=== PATIENT | female | born 1985 | race Caucasian/White ===

== ENCOUNTER 2020-08-24 10:55 | Outpatient (REF) | payer OTHER, SELFPAY ==
[2020-08-29 19:21] LABS: HPV mRNA E6/E7 rflx Not Detected (Not Detected)
== END 2020-08-24 10:56 | disposition home or self-care (01) ==
LOC: HO.LAB 10:55
PROVIDERS: Visit Provider Advanced Practice Midwife
DX: Z01.419 Encounter for gynecological examination (general) (routine) without abnormal findings (principal); N63.21 Unspecified lump in the left breast, upper outer quadrant
CPT/HCPCS: 87624; 87625; 88142

== ENCOUNTER 2020-09-19 13:28 | Outpatient (REF) | payer OTHER, SELFPAY ==
--- NOTE | 2020-09-19 | US_ITS ---
EXAMINATION: US DIAGNOSTIC ULTRASOUND BREAST, BILATERAL CLINICAL INFORMATION: Bilateral breast densities. COMPARISON: 09/19/2020 TECHNIQUE: Ultrasound of the breast is performed with real-time simms scale imaging and color Doppler. FINDINGS: Targeted left breast ultrasound demonstrates at the 1 o'clock position, 3 cm from the nipple, a bilobed cyst with smooth and increased through-sound transmission without any increased sound shadowing. The lesion is wider than it is tall without internal vascularity. No suspicious solid mass or shadowing lesion is appreciated. Targeted right breast ultrasound demonstrated at the 1:30 position, approximately 6 cm from the nipple, an elongated anechoic lesion measuring approximately 5 x 2 x 4 mm lesion which is wider than it is tall with some increased through-sound transmission and no distal sound shadowing. No internal vascularity is present. Recommend obtaining outside studies for comparison and addendum will be made once study can be compared. Results are discussed with the patient at time of visit. US/US breast LT limited IMPRESSION: 1. Palpable abnormality of the left breast corresponds to a cyst. 2. Circumscribed density about the medial aspect of the right breast appears to correspond to a cyst. ASSESSMENT: BI-RADS 0: Incomplete -need comparison with previous studies. RECOMMENDATION: Comparison to previous study for comparison of right breast finding.
--- NOTE | 2020-09-19 | US_ITS ---
EXAMINATION: US DIAGNOSTIC BREAST, BILATERAL CLINICAL INFORMATION: Bilateral breast densities. COMPARISON: Mammogram of same day. Outside studies from not available at this time.. TECHNIQUE: Ultrasound of the breast is performed with real-time simms scale imaging and color Doppler. FINDINGS: Targeted left breast ultrasound demonstrates at the 1 o'clock position, 3 cm from the nipple, a bilobed cyst with smooth and increased through-sound transmission without any increased sound shadowing. The lesion is wider than it is tall without internal vascularity. No suspicious solid mass or shadowing lesion is appreciated. Targeted right breast ultrasound demonstrated at the 1:30 position, approximately 6 cm from the nipple, an elongated anechoic lesion measuring approximately 5 x 2 x 4 mm lesion which is wider than it is tall with some increased through-sound transmission and no distal sound shadowing. No internal vascularity is present. Recommend obtaining outside studies for comparison and addendum will be made once study can be compared. Results are discussed with the patient at time of visit. US/US breast RT limited IMPRESSION: 1. Palpable abnormality of the left breast corresponds to a cyst. 2. Circumscribed density about the medial aspect of the right breast appears to correspond to a cyst. ASSESSMENT: BI-RADS 0: Incomplete -need comparison with previous studies. RECOMMENDATION: Comparison to previous study for comparison of right breast finding.
--- NOTE | 2020-09-19 13:33 | MM_ITS ---
EXAMINATION: MM DIAGNOSTIC DIGITAL BREAST TOMOSYNTHESIS, BILATERAL CLINICAL INFORMATION: Left breast lump, upper outer aspect. The lifetime risk of breast cancer based on the Tyrer-Cuzick Model is 9.8%. COMPARISON: Mammography: None at this time. Outside studies at [facility]. TECHNIQUE: Digital breast tomosynthesis is performed in both the craniocaudal and mediolateral oblique views along with computer-aided detection (CAD). Synthesized 2D images are generated from the tomosynthesis. Additional right breast exaggerated craniocaudal view as well as spot compression views of the right breast in craniocaudal and mediolateral oblique projections. FINDINGS: The breasts are heterogeneously dense, which may obscure small masses (ACR BI-RADS breast composition Category c). Within the upper outer aspect of the left breast corresponding to palpable abnormality approximately 3 cm from the nipple, a 1.4 cm circumscribed lesion is seen. Within the right breast medially there is an 8 x 4 mm circumscribed density. No suspicious grouping of microcalcifications identified. Targeted left breast ultrasound demonstrates at the 1 o'clock position, 3 cm from the nipple, a bilobed cyst with smooth and increased through-sound transmission without any increased sound shadowing. The lesion is wider than it is tall without internal vascularity. No suspicious solid mass or shadowing lesion is appreciated. Targeted right breast ultrasound demonstrated at the 1:30 position, approximately 6 cm from the nipple, an elongated anechoic lesion measuring approximately 5 x 2 x 4 mm lesion which is wider than it is tall with some increased through-sound transmission and no distal sound shadowing. No internal vascularity is present. Recommend obtaining outside studies for comparison and addendum at that point will be made once study can be compared. Results are discussed with the patient at time of visit. MM/MM tomosynthesis diagnostic BI IMPRESSION: 1. Palpable abnormality of the left breast corresponds to a cyst. 2. Circumscribed density about the medial aspect of the right breast appears to correspond to a cyst. ASSESSMENT: BI-RADS 0: Incomplete -need comparison with previous studies. RECOMMENDATION: Comparison with previous study for comparison of right breast finding.
== END 2020-09-19 13:29 | disposition home or self-care (01) ==
LOC: HO.MAMMO 13:28
PROVIDERS: PCP Nurse Practitioner Family; Visit Provider Advanced Practice Midwife
DX: N63.21 Unspecified lump in the left breast, upper outer quadrant (principal)
CPT/HCPCS: 76642; 77062; 77066

== ENCOUNTER 2020-10-03 10:00 | Outpatient (REF) | payer OTHER, SELFPAY ==
[2020-10-03 10:39] LABS: COVID-19 Test Negative (Negative)
== END 2020-10-03 10:01 | disposition home or self-care (01) ==
LOC: HO.EMPCOV 10:00
PROVIDERS: Visit Provider Internal Medicine
DX: Z20.828 Contact with and (suspected) exposure to other viral communicable diseases (principal)
CPT/HCPCS: 87635; C9803

== ENCOUNTER → 2020-10-16 10:40 | Outpatient (BNVA) | payer OTHER, SELFPAY | PROVIDERS: PCP Internal Medicine; Visit Provider Advanced Practice Midwife | DX: Z76.89 Persons encountering health services in other specified circumstances (principal) ==

== ENCOUNTER 2021-02-13 07:51 | Outpatient (REF) | payer OTHER, SELFPAY ==
--- NOTE | ~2021-02-13 | XR_ITS ---
EXAMINATION: X-RAY BILATERAL KNEES X-RAY RIGHT KNEE X-RAY LEFT KNEE CLINICAL INFORMATION: Knee pain COMPARISON: None TECHNIQUE: Bilateral knees one view. Right knee 2 views. Left knee 2 views. FINDINGS: Right knee: Normal alignment. Joint spaces are maintained. No fracture or dislocation. No effusion. Left knee: Normal alignment. Joint spaces are maintained. No fracture or dislocation. No effusion. XR/XR knee RT 2V IMPRESSION: No acute osseous abnormality.
--- NOTE | ~2021-02-13 | XR_ITS ---
EXAMINATION: X-RAY BILATERAL KNEES X-RAY RIGHT KNEE X-RAY LEFT KNEE CLINICAL INFORMATION: Knee pain COMPARISON: None TECHNIQUE: Bilateral knees one view. Right knee 2 views. Left knee 2 views. FINDINGS: Right knee: Normal alignment. Joint spaces are maintained. No fracture or dislocation. No effusion. Left knee: Normal alignment. Joint spaces are maintained. No fracture or dislocation. No effusion. XR/XR knee standing BI IMPRESSION: No acute osseous abnormality.
--- NOTE | ~2021-02-13 | XR_ITS ---
EXAMINATION: X-RAY BILATERAL KNEES X-RAY RIGHT KNEE X-RAY LEFT KNEE CLINICAL INFORMATION: Knee pain COMPARISON: None TECHNIQUE: Bilateral knees one view. Right knee 2 views. Left knee 2 views. FINDINGS: Right knee: Normal alignment. Joint spaces are maintained. No fracture or dislocation. No effusion. Left knee: Normal alignment. Joint spaces are maintained. No fracture or dislocation. No effusion. XR/XR knee LT 2V IMPRESSION: No acute osseous abnormality.
== END 2021-02-13 07:52 | disposition home or self-care (01) ==
LOC: HO.HOSX 07:51
PROVIDERS: Visit Provider Orthopaedic Surgery
DX: M22.2X1 Patellofemoral disorders, right knee (principal); M22.2X2 Patellofemoral disorders, left knee; M70.61 Trochanteric bursitis, right hip; M70.62 Trochanteric bursitis, left hip
CPT/HCPCS: 73560; 73565

== ENCOUNTER 2021-03-23 12:36 | Outpatient (REF) | payer OTHER, SELFPAY ==
--- NOTE | ~2021-03-23 | US_ITS ---
EXAMINATION: US DIAGNOSTIC ULTRASOUND BREAST, RIGHT CLINICAL INFORMATION: Right breast complex cyst follow-up. COMPARISON: September 19, 2020. TECHNIQUE: Ultrasound of the breast is performed with real-time simms scale imaging and color Doppler. FINDINGS: There is again noted to be a stable minimally complex cyst about the 1 to 2:00 position 6 cm from the nipple measuring 4 x 2 mm in size. There is no solid mass, architectural abnormality, duct ectasia, or edema in the soft tissue planes. Results are discussed with the patient at time of visit. US/US breast RT limited IMPRESSION: Stable minimally complex cyst right breast. ASSESSMENT: BI-RADS 2: Benign RECOMMENDATION: Routine annual mammography screening, due in 6 months. This patient's information was entered into a reminder system with a target due date for their next mammogram.
--- NOTE | ~2021-03-23 | MM_ITS ---
EXAMINATION: MM DIAGNOSTIC DIGITAL BREAST TOMOSYNTHESIS, RIGHT CLINICAL INFORMATION: Lump upper outer quadrant The lifetime risk of breast cancer based on the Tyrer-Cuzick Model is 9.8%. COMPARISON: Mammography: September 19, 2020 TECHNIQUE: Digital breast tomosynthesis is performed in both the craniocaudal and mediolateral oblique views along with computer-aided detection (CAD). Synthesized 2D images are generated from the tomosynthesis. FINDINGS: The breasts are heterogeneously dense, which may obscure small masses (ACR BI-RADS breast composition Category c). There are no new significant masses, abnormal calcifications, or other abnormalities. Stable circumscribed density about the superior medial aspect of the right breast again seen. Results are provided to the patient at time of visit by the technologist. MM/MM tomosynthesis diagnostic RT IMPRESSION: There are no significant changes from prior study. ASSESSMENT: BI-RADS 2: Benign RECOMMENDATION: Routine annual mammography screening, due in 6 months. This patient's information was entered into a reminder system with a target due date for their next mammogram.
== END 2021-03-23 12:37 | disposition home or self-care (01) ==
LOC: HO.MAMMO 12:36
PROVIDERS: Visit Provider Advanced Practice Midwife
DX: N60.01 Solitary cyst of right breast (principal)
CPT/HCPCS: 76642; 77061; 77065

== ENCOUNTER 2021-03-28 11:17 | Outpatient (REF) | payer OTHER, SELFPAY | END 2021-03-28 11:18 | disposition home or self-care (01) | LOC: HO.LAB 11:17 | PROVIDERS: PCP Internal Medicine; Visit Provider Advanced Practice Midwife | DX: Z71.2 Person consulting for explanation of examination or test findings (principal); N63.21 Unspecified lump in the left breast, upper outer quadrant; N39.0 Urinary tract infection, site not specified; R31.9 Hematuria, unspecified | CPT/HCPCS: 87086; 87088; 87186 ==

== ENCOUNTER 2021-04-02 09:00 | Outpatient (RCR) | payer OTHER, SELFPAY ==
--- NOTE | 2021-02-27 09:33 | MHC.PT.EP ---
[facility] [place] Office [place] Office [place] [facility] [address] Garth Sandoval [address] [phone] F: [phone] F: [phone] F: [phone] F: [phone] Physical Therapy Plan of Care Date of Evaluation: Date of Surgery: Diagnosis: bilateral patellofemoral disorder Assessment: The patient arrived reporting bilateral knee pain. She has normal ROM and normal strength in her knees. However, she has poor squat mechanics, increased ankle instability, poor mobility in her lumbar spine, tightness in her hamstrings bilaterally, and sacral torsion noted in her pelvis. She will benefit from education on proper squat/lifting mechanics, sitting posture for work, footwear for prolonged standing/'walking. She also reports a significant pelvic floor weakness history which suggests possible prolapse. She would benefit from a full and separate pelvic floor assessment to address her bowel and bladder symptoms. She is an excellent candidate for skilled PT. Frequency and Duration: The patient will be seen 2x/week x 3 weeks. Short Term Goals: Pt to be able to know the proper footwear to avoid stress to her knees. Pt to demonstrate initial instructions on improving bending and squatting and avoiding medial collapse during steps/stairs. Record Label Internship Goals: 1. Pt to be able to demonstrate proper squatting and bending mechanics to decrease stress to knees. 2. Pt to have good mobility in her pelvis and sacrum to decrease lower back pain/coccyx pain. Treatment Plan: Modalities to reduce pain, spasms and effusion. Manual therapy to restore motion and function. Therapeutic exercise to improve strength and flexibility. Neuromuscular re-education for posture and balance. Therapeutic activities to return to functional activities of daily living. Electronically signed by: Brandy Bernstein PT DPT Please sign and return to therapist. Thank you for your referral.
== END 2021-04-07 08:00 | disposition home or self-care (01) ==
LOC: HO.PT 09:00
PROVIDERS: Visit Provider Orthopaedic Surgery
DX: M22.2X1 Patellofemoral disorders, right knee (principal); M22.2X2 Patellofemoral disorders, left knee; M70.61 Trochanteric bursitis, right hip
CPT/HCPCS: 97110; 97112; 97140; 97162; 97530

== ENCOUNTER 2021-04-11 13:41 | Outpatient (REF) | payer OTHER, SELFPAY ==
[2021-04-11 14:17] LABS: MANUAL DIFF FLAG NO
[2021-04-11 14:19] LABS: Basophils Percent Auto 0.5 % (0-2); Eosinophils Absolute Auto 0.3 X10*3/uL (0.0-0.4); Eosinophils Percent Auto 4.1 % (0-4); Hematocrit 39.7 % (37-47); Hemoglobin 13.2 g/dl (12.0-16.0); Imm Gran Abs Auto 0.01 X10*3/uL (0.00-0.03); Imm Gran Pct Auto 0.2 % (0.0-0.4); Lymphocytes Absolute Auto 1.9 X10*3/uL (1.2-4.9); Lymphocytes Percent Auto 30.1 % (20-40); Mean Corpuscular HGB Conc 33.2 g/dl (31.0-35.0); Mean Corpuscular Hemoglobin 29.9 pg (27.0-33.0); Mean Corpuscular Volume 89.8 fL (80-98); Mean Platelet Volume 10.3 fL (9.4-12.3); Monocytes Absolute Auto 0.5 X10*3/uL (0.1-1.2); Monocytes Percent Auto 8.4 % (2-11); Neutrophils Absolute Auto 3.6 X10*3/uL (2.0-8.3); Neutrophils Percent Auto 56.7 % (45-73); Platelet Count 232 X10*3/uL (160-400); Red Blood Count 4.42 X10*6/uL (4.20-5.50); Red Cell Distribution Width 13.2 % (11.0-16.0); White Blood Count 6.3 X10*3/uL (4.8-10.8)
[2021-04-11 15:03] LABS: Glucose Urine UA NEG (NEG); Leukocyte Esterase Urine 2+ (NEG); Nitrite Urine NEG (NEG); UACC Culture Trigger YES; Urine Blood 2+ (NEG); Urine Ketones NEG (NEG); Urine Protein TRACE MG/DL (NEG-TRACE)
[2021-04-11 15:06] LABS: Appearance Urine CLOUDY; Color Urine YELLOW
[2021-04-11 15:15] LABS: Bacteria Urine 1+ /LPF; Squamous Epithelial Cell Urine 1+ /LPF
== END 2021-04-11 13:42 | disposition home or self-care (01) ==
LOC: HO.LAB 13:41
PROVIDERS: PCP Internal Medicine; Visit Provider Internal Medicine
DX: R30.0 Dysuria (principal); D50.9 Iron deficiency anemia, unspecified
CPT/HCPCS: 36415; 81001; 81003; 85025; 87086; 87088; 87186

== ENCOUNTER → 2021-06-19 08:53 | Outpatient (BNVA) | payer SELFPAY | PROVIDERS: PCP Internal Medicine | DX: Z20.822 Contact with and (suspected) exposure to COVID-19 (principal) | CPT/HCPCS: 36415; 87635 ==

== ENCOUNTER → 2022-01-16 14:04 | Outpatient (BNVA) | payer BC, SELFPAY | PROVIDERS: PCP Internal Medicine; Visit Provider Advanced Practice Midwife | DX: Z13.89 Encounter for screening for other disorder (principal) ==

== ENCOUNTER 2022-09-10 09:47 | Outpatient (REF) | payer BC, SELFPAY ==
[2022-09-10 11:31] LABS: MANUAL DIFF FLAG NO
[2022-09-10 11:55] LABS: Basophils Percent Auto 0.5 % (0-2); Eosinophils Absolute Auto 0.3 X10*3/uL (0.0-0.4); Eosinophils Percent Auto 5.2 % (0-4); Imm Gran Abs Auto 0.01 X10*3/uL (0.00-0.03); Imm Gran Pct Auto 0.2 % (0.0-0.4); Lymphocytes Absolute Auto 1.7 X10*3/uL (1.2-4.9); Lymphocytes Percent Auto 30.6 % (20-40); Mean Corpuscular HGB Conc 33.3 g/dl (31.0-35.0); Mean Corpuscular Hemoglobin 30.4 pg (27.0-33.0); Mean Corpuscular Volume 91.1 fL (80.0-98.0); Mean Platelet Volume 10.7 fL (9.4-12.3); Monocytes Absolute Auto 0.5 X10*3/uL (0.1-1.2); Monocytes Percent Auto 8.2 % (2-11); Neutrophils Absolute Auto 3.1 x10*3/uL (2.0-8.3); Neutrophils Percent Auto 55.3 % (45-73); Platelet Count 243 X10*3/uL (160-400); Red Blood Count 4.61 X10*6/uL (4.20-5.50); Red Cell Distribution Width 12.2 % (11.0-16.0); White Blood Count 5.6 X10*3/uL (4.8-10.8)
[2022-09-10 12:37] LABS: Alanine Aminotransferase 11 U/L (0-31); Albumin Level 4.7 g/dL (3.5-5.0); Alkaline Phosphatase 42 U/L (39-117); Anion Gap 13 (12-20); Aspartate Amino Transferase 16 U/L (5-31); Bilirubin Total 2.3 mg/dL (0.0-1.0); Blood Urea Nitrogen 14 mg/dL (9-16); Calcium 9.5 mg/dL (8.4-10.2); Carbon Dioxide 26 mmol/L (22-29); Chloride 105 mmol/L (96-108); Cholesterol 182 mg/dL; Estimated Glomerular Filt Rate > 60; Glucose Fasting 97 mg/dL (60-99); HDL Cholesterol 60 mg/dL; Iron 150 mcg/dL (30-160); LDL Cholesterol Calculated 112 mg/dl; Percent Iron Saturation 39 % (15-50); Potassium 4.6 mmol/L (3.3-5.1); Sodium 139 mmol/L (135-145); Total Iron Binding Capacity 381 mcg/dL (228-428); Total Protein 7.3 g/dL (6.5-8.0); Triglycerides 54 mg/dL; Unsaturated Iron Binding 231 ug/dL
== END 2022-09-10 09:48 | disposition home or self-care (01) ==
LOC: HO.HMGCLDS 09:47
PROVIDERS: PCP Internal Medicine; Visit Provider Internal Medicine
DX: Z00.00 Encounter for general adult medical examination without abnormal findings (principal); D64.9 Anemia, unspecified
CPT/HCPCS: 36415; 80053; 80061; 83540; 85025

== ENCOUNTER → 2023-03-12 11:11 | Outpatient (BNVA) | payer OTHER, SELFPAY | PROVIDERS: PCP Internal Medicine; Visit Provider Advanced Practice Midwife ==

== ENCOUNTER 2023-03-27 09:01 | Outpatient (REF) | payer OTHER, SELFPAY ==
--- NOTE | ~2023-03-27 | MM_ITS ---
EXAMINATION: MM DIAGNOSTIC DIGITAL BREAST TOMOSYNTHESIS, BILATERAL US DIAGNOSTIC ULTRASOUND BREAST, RIGHT CLINICAL INFORMATION: 37-year-old with recent pain 12:00 right breast for around one month. Prior history fibrocystic changes. No known family history breast cancer. TC score 9%. COMPARISON: Mammography: 03/23/2021, 09/19/2020 (diagnostic, baseline), bilateral breast ultrasound 09/19/2020, right ultrasound 03/23/2021. TECHNIQUE: Digital breast tomosynthesis is performed in both the craniocaudal and mediolateral oblique views along with computer-aided detection (CAD). Synthesized 2D images are generated from the tomosynthesis. Ultrasound right breast is targeted to the 10:00 through 2:00 position using grayscale imaging and color Doppler without and with harmonics. FINDINGS: The breasts are heterogeneously dense, which may obscure small masses (ACR BI-RADS breast composition Category c). There is fibrocystic parenchymal pattern with dominant smooth nodularity in area of clinical symptoms mid 12:00 right breast, approximately 1.6 cm in diameter. Prior dominant cyst periareolar left breast is decreased. There is no architectural abnormality. No abnormal calcifications. The axilla and skin contours are unremarkable. There is no skin thickening or coarsening of the Ron's ligaments. Ultrasound right breast demonstrates scattered benign simple cysts, the largest corresponds to the area of clinical concern mid upper left breast measuring 1.8 x 0.6 cm and showing increased through-transmission of sound and no associated color flow. The next 2 largest cysts in the interrogated area measure 0.8 cm and 0.6 cm, respectively. There is no solid mass or architectural abnormality. No skin thickening or edema tracking in soft tissue planes. Results are discussed with the patient at time of visit. MM/MM tomosynthesis diagnostic BI IMPRESSION: -Fibrocystic changes, dominant cyst at site of palpable concern measuring 1.8 cm. -No mammographic or ultrasound evidence of malignancy. ASSESSMENT: BI-RADS 2: Benign RECOMMENDATION: 1. Patient's mastodynia may be managed based on the clinical impression. 2. Otherwise, routine annual screening mammography, beginning age 40, or earlier as clinical risk factors warrant. This patient's information was entered into a reminder system with a target due date for their next mammogram.
== END 2023-03-27 09:02 | disposition home or self-care (01) ==
LOC: HO.MAMMO 09:01
PROVIDERS: PCP Internal Medicine; Visit Provider Advanced Practice Midwife
DX: N64.4 Mastodynia (principal)
CPT/HCPCS: 76642; 77062; 77066

== ENCOUNTER 2024-03-18 11:15 | Outpatient (AMB) | payer OTHER, SELFPAY ==
[2024-03-18 11:21] VITALS: BP 100/56; BMI 22.1
--- NOTE | 2024-03-18 11:21 | A.OFFVIS_ITS ---
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 Doing well with no concerns. She tries to eat healthy and stays active. No regular menses with Mirena IUD inserted 04/2020. Currently is sexually active. She denies vaginal itching and irritation. STI screening offered; she declines. Denies family history of colon cancer. Family history of breast and ovarian cancer. Last pap smear 2019, negative. [facility] Medical History Breast pain, right Allergic rhinitis Physical exam Hip pain Patellofemoral syndrome Coccyalgia Microcytic anemia Hx of migraine headaches Surgical History Hx of section Family History Father HLD (hyperlipidemia) Asthma Mother Muscular dystrophy Maternal Grandmother Ovarian cancer Colon cancer Maternal Grandfather Muscular dystrophy Social History Housing: House Alcohol intake: current Alcohol intake frequency: a few times a month Alcohol type: hard liquor Patient Tobacco Use Status: Never used Tobacco e-Cigarette/Vaping Use: Never Used Second Hand Smoke Exposure: No service: No Current occupational status: employed 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 Current occupational exposures/hazards: No Sexual orientation: Straight/Heterosexual Gender identity: Female Female Reproductive History Menstrual Age of Menarche: 11 control method: progestin IUCD (Mirena ) Total pregnancies: 2 Full term: 2 Number of Living Children: 2 Date of last pap smear: 08/25/20 (negative) Review of Systems Const All systems reviewed & are unremarkable except as noted in HPI and below Reports as per HPI Eyes Reports no additional complaints ENT Reports no additional complaints Card Reports no additional complaints Resp Reports no additional complaints GI Reports as per HPI and Reports no additional complaints Reports as per HPI Musc Reports no additional complaints Skin/Breast Reports as per HPI Neuro Reports no additional complaints Psych Reports no additional complaints Endo Reports no additional complaints Geremias/Lymph Reports no additional complaints Aller/Immun Reports no additional complaints Physical Exam Vital Signs: Last Vital Signs BP 100/56 L 03/18/24 11:21 BMI result Body Mass Index 22.1 Const General: cooperative, healthy appearing, no acute distress, well developed and alert Orientation/consciousness: patient oriented x3 HEENT Head: Yes normal to inspection Eyes General: appearance normal, both eyes and all related structures Neck Neck: Yes normal visual inspection Thyroid: Thyroid normal Chest Chest palpation & inspection: normal inspection of the chest and other (no puckering, dimpling, peau de orange, retraction, discharge, masses) Breast/axilla inspection: normal inspection of the breasts Breast/axilla palpation: normal palpation of the breasts Resp Effort & Inspection: normal respiratory effort GI Inspection: Yes normal to inspection Palpation (GI): Soft to palpation Rectal Exam - Female: deferred General: Yes bladder normal to palpation External Female Exam: normal external appearance and normal appearance of the urethra Speculum Exam - Vagina: normal appearance of the vagina, normal palpation and normal vaginal discharge Speculum Exam - Cervix: normal appearance of the cervix, normal palpation and Other cervical findings present (IUD string short at cervical os) Bimanual exam- vagina & uterus: normal bimanual exam, normal palpation, uterine size normal, bladder normal to palpation, normal palpation and non-tender Bimanual Exam- Adnexa, other: no masses Skin General skin exam: no rashes or lesions noted Rashes: no rashes Neuro General: patient oriented x3 Cognition (Neuro): normal cognition Extrem General: Yes normal to inspection Psych Attitude: cooperative Thought process: Normal thought process present Assessment & Plan Assessment & Plan (1) Well woman exam with routine gynecological exam: Code(s): Z01.419 - Encounter for gynecological examination (general) (routine) without abnormal findings Category: Medical Plan Discussed: Current recommendations for pap smears per ASCCP guidelines. Breast awareness and periodic breast exams. Maintain a healthy lifestyle including a well balanced diet and routine exercise. Patient verbalizes understanding and agrees to the plan of care. She was given opportunity to ask questions and all questions were answered to the best of my ability. RTO in one year for annual physician gynecologist examination. This note is constructed using voice recognition software. While every effort has been made to ensure accuracy, industrial technologist errors may have been included. Coding Level of Care Code Est Pt Prev Care 18-39y(99499) Diagnoses Well woman exam with routine gynecological exam Z01.419
== END 2024-03-18 12:07 | disposition home or self-care (01) ==
PROVIDERS: Visit Provider Advanced Practice Midwife
DX: Z01.419 Encounter for gynecological examination (general) (routine) without abnormal findings (principal)
CPT/HCPCS: 99395

== ENCOUNTER → 2024-03-18 11:15 | Outpatient (BNVA) | payer OTHER, SELFPAY | PROVIDERS: Visit Provider Advanced Practice Midwife | DX: Z01.419 Encounter for gynecological examination (general) (routine) without abnormal findings (principal) | CPT/HCPCS: 99395 ==

== ENCOUNTER 2025-03-22 11:26 | Outpatient (REF) | payer OTHER, SELFPAY ==
[2025-03-22 17:47] LABS: CT PCR NOT DETECTED (Not Detect.); NG PCR NOT DETECTED (Not Detect.)
[2025-03-28 12:01] LABS: HPV Genotype 16 Negative (Negative); HPV Genotype 18 Negative (Negative); HPV High Risk Negative (Negative)
== END 2025-03-22 11:27 | disposition home or self-care (01) ==
LOC: HO.LNP 11:26
PROVIDERS: PCP Internal Medicine; Visit Provider Advanced Practice Midwife
DX: Z01.419 Encounter for gynecological examination (general) (routine) without abnormal findings (principal)
CPT/HCPCS: 87491; 87591; 87626; 88175; 99395; 99459

== ENCOUNTER 2025-03-22 11:26 | Outpatient (AMB) | payer OTHER, SELFPAY ==
--- NOTE | 2025-03-22 11:30 | MHC.OFFVIS ---
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 Regular monthly menses, light brown. Uses Mirena, for cycle control, uncertain 2019. Currently is sexually active. She denies vaginal itching or irritation. She tries to eat healthy and stays active with exercise. Denies family history of colon and ovarian cancer. Last pap smear 2019, negative. [facility] Medical History (Updated 03/22/25 @ 13:15 by Chioma Larose CNM) Well woman exam with routine gynecological exam History of use of contraceptive intrauterine device (IUD) Allergic rhinitis Physical exam Hip pain Patellofemoral syndrome Coccyalgia Microcytic anemia Hx of migraine headaches Surgical History Hx of section Family History Father HLD (hyperlipidemia) Asthma Mother Muscular dystrophy Maternal Grandmother Ovarian cancer Colon cancer Maternal Grandfather Muscular dystrophy Social History Housing: House Alcohol intake: current Alcohol intake frequency: a few times a month Alcohol type: hard liquor Patient Tobacco Use Status: Never used Tobacco e-Cigarette/Vaping Use: Never Used Second Hand Smoke Exposure: No service: No Current occupational status: employed 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 Current occupational exposures/hazards: No Sexual orientation: Straight/Heterosexual Gender identity: Female Female Reproductive History Menstrual Age of Menarche: 11 Date of last menstrual period: 03/14/25 control method: progestin IUCD (Mirena ) Total pregnancies: 2 Full term: 2 Number of Living Children: 2 Date of last pap smear: 08/24/20 (negative pap smear, negative hpv ) Date of Mammogram: 03/27/23 (bi rad 2) Review of Systems Const All systems reviewed & are unremarkable except as noted in HPI and below Reports as per HPI Eyes Reports no additional complaints ENT Reports no additional complaints Card Reports no additional complaints Resp Reports no additional complaints GI Reports as per HPI and Reports no additional complaints Reports as per HPI Musc Reports no additional complaints Skin/Breast Reports as per HPI Neuro Reports no additional complaints Psych Reports no additional complaints Endo Reports no additional complaints Geremias/Lymph Reports no additional complaints Aller/Immun Reports no additional complaints Physical Exam Vital Signs: BMI result Body Mass Index 23.3 Const General: cooperative, healthy appearing, no acute distress, well developed and alert Orientation/consciousness: patient oriented x3 HEENT Head: Yes normal to inspection Eyes General: appearance normal, both eyes and all related structures Neck Neck: Yes normal visual inspection Thyroid: Thyroid normal Chest Chest palpation & inspection: normal inspection of the chest and other (no puckering, dimpling, peau de orange, retraction, discharge, masses) Breast/axilla inspection: normal inspection of the breasts Breast/axilla palpation: normal palpation of the breasts Resp Effort & Inspection: normal respiratory effort GI Inspection: Yes normal to inspection Palpation (GI): Soft to palpation Rectal Exam - Female: deferred General: Yes bladder normal to palpation External Female Exam: normal external appearance and normal appearance of the urethra Speculum Exam - Vagina: normal appearance of the vagina, normal palpation and normal vaginal discharge Speculum Exam - Cervix: normal palpation and Other cervical findings present (Strings at the os) Bimanual exam- vagina & uterus: normal bimanual exam, normal palpation, uterine size normal, bladder normal to palpation, normal palpation and non-tender Bimanual Exam- Adnexa, other: no masses Skin General skin exam: no rashes or lesions noted Rashes: no rashes Neuro General: patient oriented x3 Cognition (Neuro): normal cognition Extrem General: Yes normal to inspection Psych Attitude: cooperative Thought process: Normal thought process present Assessment & Plan Assessment & Plan (1) Well woman exam with routine gynecological exam: Code(s): Z01.419 - Encounter for gynecological examination (general) (routine) without abnormal findings Category: Medical Plan Discussed: Current recommendations for pap smears per ASCCP guidelines. Breast awareness and periodic breast exams. Mammogram after age [address] Maintain a healthy lifestyle including a well balanced diet and routine exercise. Schedule Mirena exchange. GC chlamydia completed today. Patient verbalizes understanding and agrees to the plan of care. She was given opportunity to ask questions and all questions were answered to the best of my ability. RTO in one year for annual sales representative leather goods examination. This note is constructed using voice recognition software. While every effort has been made to ensure accuracy, swimming pool salesperson errors may have been included. Orders: Orders MM tomosynthesis screening BI 06/27/25 Z12.31 - Encounter for screening mammogram for malignant neoplasm of breast Coding Level of Care Code Est Pt Prev Care 18-39y(79184) Diagnoses Well woman exam with routine gynecological exam Z01.419
[2025-03-22 11:35] VITALS: BMI 23.3
== END 2025-03-22 12:08 | disposition home or self-care (01) ==
LOC: HO.HWS 11:26
PROVIDERS: PCP Internal Medicine; Visit Provider Advanced Practice Midwife
DX: Z01.419 Encounter for gynecological examination (general) (routine) without abnormal findings (principal)
CPT/HCPCS: 99395; 99459

== ENCOUNTER 2025-04-12 14:40 | Outpatient (AMB) | payer OTHER, SELFPAY ==
--- NOTE | 2025-04-12 14:46 | MHC.OFFVIS ---
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 History of AUB. [facility] Medical History (Updated 04/12/25 @ 15:18 by Chioma Larose CNM) IUD (intrauterine device) in place Well woman exam with routine gynecological exam Allergic rhinitis Physical exam Hip pain Patellofemoral syndrome Coccyalgia Microcytic anemia Hx of migraine headaches Surgical History Hx of section Family History Father HLD (hyperlipidemia) Asthma Mother Muscular dystrophy Maternal Grandmother Ovarian cancer Colon cancer Maternal Grandfather Muscular dystrophy Social History Housing: House Alcohol intake: current Alcohol intake frequency: a few times a month Alcohol type: hard liquor Patient Tobacco Use Status: Never used Tobacco e-Cigarette/Vaping Use: Never Used Second Hand Smoke Exposure: No service: No Current occupational status: employed 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 Current occupational exposures/hazards: No Sexual orientation: Straight/Heterosexual Gender identity: Female Female Reproductive History Menstrual Age of Menarche: 11 Date of last menstrual period: 04/09/25 Review of Systems Const All systems reviewed & are unremarkable except as noted in HPI and below Physical Exam Vital Signs: Last Vital Signs BP 110/74 04/12/25 14:47 BMI result Body Mass Index 23.2 Const General: cooperative, healthy appearing and no acute distress Orientation/consciousness: patient oriented x3 GI Inspection: Yes normal to inspection Palpation (GI): Soft to palpation and Other GI palpation findings present (Nontender) Rectal Exam - Female: visual inspection normal General: Yes bladder normal to palpation External Female Exam: normal appearance of the urethra Speculum Exam - Vagina: normal appearance of the vagina, normal palpation, normal vaginal discharge and vaginal bleeding (Small amount) Speculum Exam - Cervix: normal appearance of the cervix, normal palpation and Other cervical findings present (IUD string short at the os) Bimanual exam- vagina & uterus: normal bimanual exam, normal palpation, uterine size normal, bladder normal to palpation, normal palpation, uterine shape normal and non-tender Bimanual Exam- Adnexa, other: normal adnexae OB/external & speculum: vaginal bleeding (Small amount) Neuro General: patient oriented x3 Office Procedures IUD Insert/Removal Details 78992-EJI Insertion 58500-SLJ Removal Procedure code (CPT) selection complete IUD Insert/Removal Details Details: The patient is here today for a Mirena IUD removal/ reinsertion. She was counseled on the side effects including: menstrual cycle changes, pain, infection, bleeding, or expulsion. A urine test was completed and was negative. She was consented for the IUD insertion and has signed the consent form. All questions were answered. The patient was placed in the dorsal lithotomy position. A speculum was inserted vaginally and the cervix and strings were visualized at the os. The cervix and vagina were cleansed with Betadine. A ring forcep was utilized, and the patient was asked to give a deep cough while the strings were grasped and gently tugged at the same time, removing the IUD device intact. A single toothed tenaculum was applied to the cervix for stabilization, and the uterus was sounded to 8 cm. The device was inserted and released with a gentle motion. Bleeding from the tenaculum sites and the procedure were minimal. The strings were trimmed to 3cm. All of the equipment was removed and the bimanual was normal, no tip was palpable at the cervical os. The patient tolerated the procedure well and left the office in good condition. Post IUD Insertion Care: There may be some post insertion bleeding for several days that is usually light and can turn to a light brown or pink in color. Mild cramping may occur. Nothing in the vagina including: tampons, douching or intimacy for several days. You may take an over the counter mild analgesia like Tylenol or Advil (if no allergies), per the manufacturers recommendations on dosing and frequency. Follow the directions completely. Call the office if any: fever (over 100.4), flu like symptoms, abdominal pain, worsening cramping not resolved with over the counter medications, foul smelling vaginal odor, signs of infected appearing discharge, or heavy bleeding. Use a condom for a back up method if indicated for 7 days. Always use a condom for STI prevention; IUD's are not protective against STD's. Return to the office in 4-6 weeks for IUD recheck. This note is constructed using voice recognition software. While every effort has been made to ensure accuracy, claims adjudicator errors may have been included. 12214-PYD Insertion 72010-YVF Removal Procedure code (CPT) selection complete Office Meds Mirena 21 mcg/24 hr (up to 8 years) 52 mg intrauterine device Performing Provider: Chioma Larose CNM Performing Location: [facility] Administered by: CRUZ Bridges on 04/12/25 15:15 Dose Route Admin Location Dispensed Lot Number Expiration Date [facility] Packer Inspector 1 device intrauterine 1 device [id number] 06/12/27 37395-690-44 [employer] Total Dispensed Waste 1 device 0 % Results AMB Test Urine AMB Test Urine Negative Last Edit by CRUZ Bridges on 04/12/25 15:00 Results Reviewed Results Reviewed: Laboratory Last Values [facility] Clinic Negative 04/12/25 15:00 Assessment & Plan Assessment & Plan (1) Remove/insert IUD: Code(s): Z30.433 - Encounter for removal and reinsertion of intrauterine contraceptive device Category: Medical Plan See procedure notes. The patient expressed understanding and agreement with the plan of care. All of her questions and concerns were addressed to the best of my ability. This note is constructed using voice recognition software. While every effort has been made to ensure accuracy, claims adjudicator errors may have been included. Orders: Orders AMB HCG Urine Test Today Z32.02 - Encounter for test, result negative AMB IUD Insertion/Removal - Practice Supplied Today Z30.430 - Encounter for insertion of intrauterine contraceptive device Coding Level of Care Code Procedure Only Diagnoses Remove/insert IUD Z30.433 CPT Codes Details - CPT: 00890-CRT Insertion ([id number]) Details - CPT: 91795-SXX Removal ([id number]) Details - CPT: 30778-IFU Insertion ([id number]) Details - CPT: 78509-GCE Removal ([id number])
[2025-04-12 14:47] VITALS: BP 110/74; BMI 23.2
== END 2025-04-13 07:11 | disposition home or self-care (01) ==
LOC: HO.HWS 14:40
PROVIDERS: PCP Internal Medicine; Visit Provider Advanced Practice Midwife
DX: Z30.433 Encounter for removal and reinsertion of intrauterine contraceptive device (principal); Z32.02 Encounter for pregnancy test, result negative
CPT/HCPCS: 58300; 58301

== ENCOUNTER → 2025-04-12 14:40 | Outpatient (BNVA) | payer OTHER, SELFPAY | PROVIDERS: PCP Internal Medicine; Visit Provider Advanced Practice Midwife | DX: Z30.433 Encounter for removal and reinsertion of intrauterine contraceptive device (principal); N93.9 Abnormal uterine and vaginal bleeding, unspecified | CPT/HCPCS: 58300; 58301; 81025; J7298 ==

== ENCOUNTER 2025-06-27 10:30 | Outpatient (REF) | payer OTHER, SELFPAY ==
--- NOTE | ~2025-06-27 | MM_ITS ---
EXAMINATION: MM SCREENING DIGITAL BREAST TOMOSYNTHESIS, BILATERAL CLINICAL INFORMATION: Screening. Asymptomatic. COMPARISON: Mammography: Comparison is made with available priors TECHNIQUE: Digital breast mammography with tomosynthesis is performed in both the craniocaudal and mediolateral oblique views along with computer-aided detection (CAD). FINDINGS: The breasts are heterogeneously dense, which may obscure small masses (ACR BI-RADS breast composition Category c). Bilateral circumscribed oval masses which wax and wane consistent with benign fibrocystic changes. Prior cysts were demonstrated on prior ultrasounds. There are no significant masses, abnormal calcifications, or other abnormalities. MM/MM tomosynthesis screening BI IMPRESSION: No mammographic evidence of malignancy. ASSESSMENT: BI-RADS BI-RADS 2 - Benign Findings RECOMMENDATION: Routine annual mammography screening. 1 year F/U This examination should not preclude the clinical evaluation of a suspicious palpable abnormality. This patient's information was entered into a reminder system with a target due date for their next mammogram. Electronically signed by: Marissa Dickerson DO 07/01/2025 01:12 PM EDT
== END 2025-06-27 10:31 | disposition home or self-care (01) ==
LOC: HO.MAMMO 10:30
PROVIDERS: PCP Internal Medicine; Visit Provider Advanced Practice Midwife
DX: Z12.31 Encounter for screening mammogram for malignant neoplasm of breast (principal)
CPT/HCPCS: 77063; 77067

== ENCOUNTER → 2025-06-27 10:30 | Outpatient (BNV) | payer OTHER, SELFPAY | PROVIDERS: PCP Internal Medicine; Visit Provider Internal Medicine | DX: Z12.31 Encounter for screening mammogram for malignant neoplasm of breast (principal) | CPT/HCPCS: 77063; 77067 ==

== ENCOUNTER 2025-06-28 12:44 | Outpatient (AMB) | payer OTHER, SELFPAY ==
--- NOTE | 2025-06-28 12:47 | A.OFFVIS_ITS ---
Vital Signs 06/28/25 12:48 Height 5 ft 2 in BP 120/62 Blood Pressure Location Rt brachial Position Sitting Intake Visit Reasons: 6 week IUD Check Intake Note: no c/o, no bleeding. 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 She denies any pelvic pain, discharge or other concerns, post insertion bleeding has resolved. [facility] Medical History (Updated 06/28/25 @ 13:20 by Chioma Larose CNM) IUD (intrauterine device) in place Well woman exam with routine gynecological exam Allergic rhinitis Physical exam Hip pain Patellofemoral syndrome Coccyalgia Microcytic anemia Hx of migraine headaches Surgical History Hx of section Family History Father HLD (hyperlipidemia) Asthma Mother Muscular dystrophy Maternal Grandmother Ovarian cancer Colon cancer Maternal Grandfather Muscular dystrophy Social History Housing: House Alcohol intake: current Alcohol intake frequency: a few times a month Alcohol type: hard liquor Patient Tobacco Use Status: Never used Tobacco e-Cigarette/Vaping Use: Never Used Second Hand Smoke Exposure: No Patient : No service: No 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 occupational status: employed 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 Current occupational exposures/hazards: No Sexual orientation: Straight/Heterosexual Gender identity: Female Female Reproductive History Menstrual Age of Menarche: 11 control method: progestin IUCD Date of last pap smear: 03/23/25 History of abnormal pap smear: No History of STI: No Date of Mammogram: 06/27/25 Review of Systems Const All systems reviewed & are unremarkable except as noted in HPI and below Physical Exam Vital Signs: Last Vital Signs BP 120/62 06/28/25 12:48 Const General: cooperative, healthy appearing and no acute distress Orientation/consciousness: patient oriented x3 GI Inspection: Yes normal to inspection Palpation (GI): Soft to palpation and Other GI palpation findings present (Nontender) Rectal Exam - Female: visual inspection normal General: Yes bladder normal to palpation External Female Exam: normal appearance of the urethra Speculum Exam - Vagina: normal appearance of the vagina, normal palpation and normal vaginal discharge Speculum Exam - Cervix: normal appearance of the cervix, normal palpation and Other cervical findings present (IUD strings initially not found and were teased down with a Cytobrush) Bimanual exam- vagina & uterus: normal bimanual exam, normal palpation, uterine size normal, bladder normal to palpation, normal palpation, uterine shape normal and non-tender Bimanual Exam- Adnexa, other: normal adnexae Neuro General: patient oriented x3 Assessment & Plan Assessment & Plan (1) IUD check up: Code(s): Z30.431 - Encounter for routine checking of intrauterine contraceptive device Plan Reviewed efficacy of the Mirena IUD and advised to call with any bleeding abnormalities or concerns. Annual exam scheduled for March 2026. The patient expressed understanding and agreement with the plan of care. All of her questions and concerns were addressed to the best of my ability. This note is constructed using voice recognition software. While every effort has been made to ensure accuracy, pocket closer errors may have been included. Coding Level of Care Code Est Pt Level 2 (03299) Diagnoses IUD check up Z30.431
[2025-06-28 12:48] VITALS: BP 120/62
== END 2025-06-28 13:40 | disposition home or self-care (01) ==
LOC: HO.HWS 12:44
PROVIDERS: PCP Internal Medicine; Visit Provider Advanced Practice Midwife
DX: Z30.431 Encounter for routine checking of intrauterine contraceptive device (principal)
CPT/HCPCS: 99212

== ENCOUNTER → 2025-06-28 12:44 | Outpatient (BNVA) | payer OTHER, SELFPAY | PROVIDERS: PCP Internal Medicine; Visit Provider Advanced Practice Midwife | DX: Z30.431 Encounter for routine checking of intrauterine contraceptive device (principal) | CPT/HCPCS: 99212 ==